=== PATIENT | female | born 1980 | race Caucasian/White ===

== ENCOUNTER 2018-04-23 21:10 | Emergency (ER) | payer OTHER ==
[2018-04-23 21:25] VITALS: BP 109/88
[2018-04-23] MEDS ORDERED: NAPROXEN 250 MG TABLET PO STA (22:09)
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
== END 2018-04-23 22:36 | disposition home or self-care (01) ==
LOC: ED 21:10
DX: S09.90XA Unspecified injury of head, initial encounter (principal); V49.40XA Driver injured in collision with unspecified motor vehicles in traffic accident, initial encounter; W22.11XA Striking against or struck by driver side automobile airbag, initial encounter
CPT/HCPCS: 99282; 99283; A9270